=== PATIENT | female | born 1940 | race Caucasian/White ===

== ENCOUNTER → 2017-08-11 | Outpatient (CLI) | payer MEDICARE, OTHER ==
[~2017-08-11] MED LIST: ACE3 PO; ACYC800T99 PO; ASPI-839 PO; CALC600T63 PO; CHOL400T29 PO; DEN60I SUBQ; DOCU-416 PO; ENZY1CAP PO; ENZY1CAP3 PO; IBUP-56 PO; IBUP200C74 PO; LACT1CAP6 PO; LETR2.5T4 PO; LEVO25TA61 PO; LUTE20TA PO; LUTE40CA PO; MET60GMPT TOP; MULT-885 PO; OMEG500C7 PO
--- NOTE | 2017-08-11 13:01 | RADIOLOGY IMAGING REPORT ---
FACILITY: [facility] - [place] PATIENT NAME: Nevin Cade : 1940 MR: [id number] V: [id number] EXAM DATE: [id number] ORDERING PHYSICIAN: KELSIE TOUSSAINT TECHNOLOGIST: Location: [facility] - [place] Patient: Nevin Cade : 1940 Visit/Account:[id number] Date of Sevice: 08/11/2017 DEXA Scan Clinical history: Osteopenia. Comparison: DEXA scan from 05/24/2016. LUMBAR SPINE: The bone mineral density (BMD) measured from L1-L4 correlates with a Z-score -0.8 and a T-score of - 3.0 which is osteoporosis as defined by the World Health Organization. The corresponding risk of fra cture in the lumbar spine is high compared with a young adult reference population. This value has i ncreased by 2.9 % since the prior study. More than 5% change is considered significant. HIP: Bone mineral density (BMD) measured in the left femoral neck region correlates with a Z-score -0.9 an d a T-score of -3.1 which is osteoporosis as defined by the World Health Organization. The corresp onding risk of fracture in the hip is high compared with a young adult reference population. The tota l hip value has increased by 7.2 % since the prior study. More than 5% change is considered signific ant. Bone mineral density (BMD) measured in the Femoral Neck region measures 0.609 g/cm2. IMPRESSION: 1. Lumbar spine: Osteoporosis. There has been increase in the bone mineral density since the previo us exam. 2. Left femoral neck region: Osteoporosis. There has been increase in the bone mineral density of t he total hip since the previous exam. 3. Femoral Neck: Bone Mineral Density is 0.609 g/cm2 The next DEXA scan of this patient should include the following sites: L1-L4 and the left hip. FRAX? WHO Fracture Risk Assessment Tool link: <http://www.shef.ac.uk/FRAX/tool.jsp?[email or web address]> PLEASE NOTE: 1) The World Health Organization defines low BMD as follows: T-score Normal > -1 Osteopenia < -1 and > -2.5 Osteoporosis < -2.5 without fractures Established osteoporosis < -2.5 with fractures 2) In general, you may wish to consider: Diagnosis Treatment Follow-up DEXA Normal BMD Prevention 2-3 years Osteopenia Prevention/therapy 1-2 years Osteoporosis Therapy Yearly 3) Fracture risk estimated from the T-score is more accurate for vertebral fractures (often spontane ous) than for hip fractures. Report Dictated By: Froy Callaway at 08/11/2017 12:54 PM Report E-Signed By: Froy Callaway at 08/11/2017 12:56 PM WSN:[email or web address]
--- NOTE | 2017-08-12 15:46 | RADIOLOGY IMAGING REPORT ---
[place] [facility] [place] NAME[place] KHUSHBOO MICHAELS : [id number] MR: [id number] V: [id number] EXAM DATE: [id number] ORDERING PHYSICIAN: KELSIE TOUSSAINT TECHNOLOGIST: Camila Sauceda PROCEDURE:BILATERAL DIAGNOSTIC DIGITAL MAMMOGRAM WITH CAD ASSISTED INTERPRETATION & 3D TOMOSYNTHESIS COMPARISON:Prior mammograms 08/10/16, 02/13/16, 11/25/15, 05/08/15 INDICATIONS:HX RIGHT BREAST CA FINDINGS: Moderately dense fibroglandular tissue again seen throughout the breasts. Again there is an area of architectural distortion in the medial upper portion of the right breast from previous lumpectomy. There is a small collection of calcifications in the medial upper portion of the right breast more appreciated previously although these appear to have a curvilinear lobular configuration & likely represent an area of developing fat necrosis. A 6 month follow up Right mammogram is recommended for further evaluation unless clinical findings warrant more immediate attention. DIAGNOSTIC CATEGORY 3--PROBABLY BENIGN FINDING. RECOMMENDATIONS: SIX MONTH FOLLOW-UP DIAGNOSTIC MAMMOGRAM: RIGHT BREAST. IMPRESSION: BIRADS 3: Probably benign finding A 6 month follow up Right mammogram recommended as described. Dictated by: Jeni Butt M.D. on 08/11/2017 at 12:39 Transcribed by: JILLIAN on 08/11/2017 at 14:13 Approved by: Jeni Butt M.D. on 08/12/2017 at 15:45 [facility]
== END ==
LOC: MAMO 10:55
PROVIDERS: ATTEND Nurse Practitioner Family
DX: M81.8 Other osteoporosis without current pathological fracture (principal); R92.1 Mammographic calcification found on diagnostic imaging of breast
CPT/HCPCS: 77062; 77066; 77080

== ENCOUNTER 2017-09-01 12:30 | Outpatient (RCR) | payer MEDICARE, OTHER ==
[2017-06-23 10:43] VITALS: BP 87/59
[2017-08-29 10:01] LABS: PLATELET COUNT, AUTOMATED 171 K/uL (150-450)
[2017-08-29 10:02] VITALS: BP 104/66
[~2017-09-01 12:30] MED LIST changes: +DENOSUMAB 60 MG/1 ML SYR SUBQ ONE
[2017-09-01 12:39] VITALS: BP 106/62
--- NOTE | 2017-09-01 19:27 | ONCOLOGY FOLLOW UP NOTE ---
EVENT DATE: September 01, 2017 DIAGNOSES - Right breast cancer - Osteoporosis CHIEF COMPLAINT Patient is here today for followup of her right breast cancer. ONCOLOGY HISTORY The patient is a 76-year-old postmenopausal woman who presented with abnormal mammogram with followup with ultrasonogram. Her ultrasound of the right breast done on May 12, 2015 was read as negative assessment. Her right digital diagnostic mammogram with CAD done on November 25, 2015 was incomplete assessment. Ultrasound of right breast done on November 25, 2015 was incomplete, so the patient ended by having bilateral breast MRI done on December 09, 2015, which showed suspicious malignancy, but the findings were not classic for malignancy. At 12 o'clock of the right breast, there is an avoid mass measuring 4.3 x 7.4 x 9.4 mm. The patient was scheduled for MRI-guided right breast biopsy done on February 13, 2016, and the patient ended by having right breast cancer wide excision and wide axillary sentinel lymph node biopsy done by Dr. Sagastume on February 13, 2016. Pathology came back positive for 1.2 cm invasive ductal carcinoma, grade II/III with negative margins. Three sentinel lymph nodes were negative for metastasis; ER positive 89%, WY negative. HER2/ dipika negative. Ki-67 was low at 4.6%. p53 was also negative. The patient's tumor was staged as stage IA (t1c pM0 cM0). HISTORY OF PRESENT ILLNESS Patient is here today for followup of her right breast cancer on Letrozole adjuvant hormonal therapy. She is doing fine currently except for occasional hot flashes. She has nasal discharge. She has occasional shortness of breath. She is weak, tired and fatigued from working in her backyard, but other than that she is really doing very well. PAST MEDICAL HISTORY 1. Thyroid nodules, on low dose levothyroxine. 2. History of skin cancer, status post resection. 3. History of bone fractures from falling in the past. PAST SURGICAL HISTORY 1. Resection for skin cancers. 2. Right broken shoulder surgery. FAMILY HISTORY Negative for cancer or blood disease except paternal first cousin with breast cancer in her mid 50s. SOCIAL HISTORY The patient is with one child. She is retired from different jobs in the past. Denies any abuse of tobacco, alcohol or drugs. CURRENT MEDICATIONS 1. Levothyroxine 25 mcg daily. 2. Vitamin supplement. 3. Letrozole 2.5 mg daily. ALLERGIES 1. HYDROCODONE, which causes vomiting and weakness. 2. CLINDAMYCIN, which causes skin rash. REVIEW OF SYSTEMS CONSTITUTIONAL: No appetite or weight change. No fever, chills. The patient has occasional hot flashes. No recent infection. HEENT: Ears: No tinnitus or hearing problem. Nose: The patient has some nasal discharge. Throat: No sore throat or mouth ulcers. Eyes: No diplopia or visual changes. RESPIRATORY: She has occasional shortness of breath. No cough, expectoration or hemoptysis. CARDIOVASCULAR: No chest pain, orthopnea, or paroxysmal nocturnal dyspnea (PND) . No edema. No palpitations. GASTROINTESTINAL: No nausea or vomiting. No diarrhea or constipation. No change in bowel movements. No heartburn or swallowing difficulties. No abdominal pain. No jaundice. No hematemesis, melena or rectal bleeding. GENITOURINARY: No hematuria or dysuria. MUSCULOSKELETAL: No pain in the muscles, joints or bones. NEUROLOGICAL: No tingling or numbness in the hands or feet. No headaches or convulsions. HEMATOLOGIC/LYMPHATIC: No bleeding or easy bruising. She is weak, tired and fatigued. No enlarged lymph nodes. SKIN: No skin rash or lumps. PSYCHIATRIC: No anxiety or depression. PHYSICAL EXAMINATION GENERAL: Looks stable. Well-developed, well-nourished, and in no acute distress. VITAL SIGNS: Blood pressure 106/62, pulse 86 per minute, respirations 16 per minute, temperature 97.2, pulse oximetry 92% on room air. HEENT: Head: Atraumatic. No sinus tenderness to palpation. Eyes: No icterus or conjunctivitis. Mouth and throat: No oral thrush or mucositis. NECK: Supple. No cervical or supraclavicular lymphadenopathy. LUNGS: Clear to auscultation and percussion bilaterally. HEART: Regular rate and rhythm. No gallops, murmurs, clicks or rubs. ABDOMEN: Soft and lax. No tenderness. No hepatosplenomegaly. No masses. EXTREMITIES: No cyanosis, clubbing or edema. LYMPHATICS: No peripheral lymphadenopathy. NEUROLOGICAL: Conscious, alert and oriented times three. No focal motor or sensory deficits. PSYCHIATRIC: Mood and affect appear normal. SKIN: No skin rash, bruise or purpuric eruption. DIAGNOSTIC DATA CBC showed white count 3.7, hemoglobin 14.1, hematocrit 41%, platelets 171,000. Chem panel totally normal except BUN 22, blood sugar 70, AST 37. Other parameters are normal. ASSESSMENT 1. 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 Three sentinel lymph nodes were negative for metastasis. ER positive; WY negative; HER2/dipika negative. Oncotype DX testing showed recurrence score of 11, so the patient is not a candidate for adjuvant chemotherapy. Patient received adjuvant radiation therapy. Her DEXA scan showed osteoporosis and her vitamin D level was normal at 56. Patient started Letrozole 2.5 mg May 27, 2016. She is tolerating treatment very well currently except for occasional hot flashes. I am planning to continue her adjuvant Letrozole therapy for a total of five years. I will see her again in three months with CBC, chem panel, and CA 27-29. 2. Osteoporosis. Patient currently on vitamin D and calcium, and because she is on one of the aromatase inhibitors, she started treatment with Prolia 60 mg every six months. We will monitor her DEXA scan every two years. 3. Thyroid nodule, on levothyroxine. 4. History of skin cancer, status post resection in the past. PLAN 1. Letrozole 2.5 mg daily. 2. Patient to return in three months with CBC, chem panel, CA 27-29. 3. Continue Prolia 60 mg subcutaneously every six months. 4. The patient to contact us for any new concerns or complaints. MTDD
== END 2017-09-06 10:05 | disposition home or self-care (01) ==
LOC: ONC 12:30
PROVIDERS: ATTEND Internal Medicine Hematology
DX: C50.811 Malignant neoplasm of overlapping sites of right female breast (principal); Z17.0 Estrogen receptor positive status [ER+]; Z92.3 Personal history of irradiation; Z79.811 Long term (current) use of aromatase inhibitors; M81.0 Age-related osteoporosis without current pathological fracture; E04.1 Nontoxic single thyroid nodule; Z85.828 Personal history of other malignant neoplasm of skin
CPT/HCPCS: 36415; 85025; 96372; G0463; J0897; 82040; 82247; 82310; 82374; 82435; 82565; 82947; 84075; 84132; 84155; 84295; 84450; 84460; 84520; 99212

== ENCOUNTER → 2017-09-12 | Outpatient (CLI) | payer MEDICARE, OTHER ==
[~2017-09-12] MED LIST changes: -DENOSUMAB 60 MG/1 ML SYR SUBQ ONE
--- NOTE | 2017-09-12 11:35 | RADIOLOGY IMAGING REPORT ---
FACILITY: [facility] - [place] PATIENT NAME: Nevin Cade : 1940 MR: [id number] V: [id number] EXAM DATE: ORDERING PHYSICIAN: SUSY SANCHEZ TECHNOLOGIST: Location: [facility] - [place] Patient: Nevin Cade : 1940 Visit/Account:[id number] Date of Sevice: 09/12/2017 THYROID HISTORY: Follow-up goiter COMPARISON: September 01, 2016 FINDINGS: SIZE: Normal. Right lobe: 4.1 x 1.3 x 1.2 cm Left lobe: 4.7 x 1.3 x 1.2 cm Isthmus: 2 mm PARENCHYMA: Homogeneous. NODULES: Right lobe: * The mid right lobe there is a well-circumscribed ovoid hypoechoic nodule measuring 9 mm in diamete r. In the superior pole the right lobe there is a 4 mm cyst Left lobe: * The mid left lobe there is a well-circumscribed ovoid hypoechoic nodule measuring 9 mm in diameter . The mid to upper pole on the left there is a 3 mm cyst. Isthmus: * None discrete. VASCULARITY: Within normal limits. ADDITIONAL FINDINGS: None IMPRESSION: Subcentimeter thyroid nodules bilaterally REFERENCE: 2015 [employer] Management Guidelines for Adult Patients with Thyroid Nodules and D ifferentiated Thyroid Cancer: The [employer] [employer] Guidelines Task Force on Thyroid Nodul es and Differentiated Thyroid Cancer. SONOGRAPHIC PATTERNS: * Benign: Purely cystic nodules (no solid component); estimated risk of malignancy <1 percent; no bi opsy recommended. * Very Low Suspicion: Spongiform or partially cystic nodules without any of the sonographic features described in low, intermediate, or high suspicion patterns; estimated risk of malignancy <3 percent; consider FNA at > 2 cm (Observation without FNA is also a reasonable option). * Low Suspicion: Isoechoic or hyperechoic solid nodule, or partially cystic nodule with eccentric so lid areas, without microcalcification, irregular margin or ETE (extra-thyroidal extension), or taller than wide shape; estimated risk of malignancy 5-10 percent; recommend FNA at >1.5 cm. * Intermediate Suspicion: Hypoechoic solid nodule with smooth margins without microcalcifications, E TE (extra-thyroidal extension), or taller than wide shape; estimated risk of malignancy 10-20 percent ; recommend FNA at > 1 cm. * High Suspicion: Solid hypoechoic nodule or solid hypoechoic component of a partially cystic nodule with one or more of the following features: irregular margins (infiltrative, microlobulated), microc alcifications, taller than wide shape, rim calcifications with small extrusive soft tissue component, evidence of ETE (extra-thyroidal extension); estimated risk of malignancy >70-90 percent; recommend FNA at > 1 cm. NOTES: * Although a sonographically suspicious subcentimeter thyroid nodule without evidence of extrathyroi martin extension or sonographically suspicious lymph nodes may be observed with close sonographic follow -up rather than pursuing immediate FNA, patient age and preference may modify decision-making. A > 50% interval increase in nodule volume and/or development of new suspicious sonographic features are felt to be a valid reasons for potential re-aspiration of a nodule previously shown to have benig n FNA cytology. Report Dictated By: Jeni Butt MD at 09/12/2017 11:20 AM Report E-Signed By: Jeni Butt MD at 09/12/2017 11:30 AM WSN:[email or web address]
== END ==
LOC: US 02:29
PROVIDERS: ATTEND Family Medicine
DX: E04.2 Nontoxic multinodular goiter (principal)
CPT/HCPCS: 76536

== ENCOUNTER → 2018-03-07 | Outpatient (CLI) | payer MEDICARE, OTHER ==
--- NOTE | 2018-03-07 16:24 | RADIOLOGY IMAGING REPORT ---
FAC[place] [facility] [place] PATIENT NAME: KHUSHBOO MICHAELS : [id number] MR: [id number] V: [id number] EXAM DATE: ORDERING PHYSICIAN: CHRISTA PHAN TECHNOLOGIST: Camila Sauceda PROCEDURE:RIGHT DIGITAL DIAGNOSTIC MAMMOGRAM WITH CAD ASSISTED INTERPRETATION & 3D TOMOSYNTHESIS COMPARISON:Prior mammograms 08/11/17, 08/10/16, 11/25/15. INDICATIONS:SIX MONTH FOLLOW UP FINDINGS: The patient also has a prior history of Right breast cancer with lumpectomy. The breasts are heterogeneously dense which may obscure small masses. Again there is an area of architectural distortion in the medial upper portion of the Right breast from previous lumpectomy. The accrual liner dystrophic type calcifications appear more prominent although have the appearance suggestive of fat necrosis. Also again noted is skin thickening from prior radiation therapy. A 6 month follow-up bilateral mammogram is recommended at which time the patient will be due for her annual mammogram. DIAGNOSTIC CATEGORY 3--PROBABLY BENIGN FINDING. RECOMMENDATIONS: SIX MONTH FOLLOW-UP DIAGNOSTIC MAMMOGRAM: BILATERAL BREASTS. IMPRESSION: BIRADS 3: Probably benign finding. A 6 month follow-up bilateral mammogram is recommended at which time the patient will be due for her annual mammogram. Dictated by: Jeni Butt M.D. on 03/07/2018 at 15:06 Transcribed by: CAITLIN on 03/07/2018 at 15:29 Approved by: Jeni Butt M.D. on 03/07/2018 at 16:23 [facility]
== END ==
LOC: MAMO 10:19
PROVIDERS: ATTEND Internal Medicine Hematology
DX: C50.911 Malignant neoplasm of unspecified site of right female breast (principal); R92.2 Inconclusive mammogram
CPT/HCPCS: 77061; 77065

== ENCOUNTER 2018-03-13 10:00 | Outpatient (RCR) | payer MEDICARE, OTHER ==
[2017-12-19 08:30] VITALS: BP_SYST 109
[2017-12-19 08:58] LABS: PLATELET COUNT, AUTOMATED 168 K/uL (150-450)
[2017-12-22 10:18] VITALS: BP 108/67
--- NOTE | 2017-12-22 19:04 | ONCOLOGY FOLLOW UP NOTE ---
EVENT DATE: December 22, 2017 DIAGNOSES 1. Right breast cancer. 2. Osteoporosis. CHIEF COMPLAINT Patient is here today for followup of her right breast cancer. ONCOLOGY HISTORY The patient is a 76-year-old postmenopausal woman who presented with abnormal mammogram with followup with ultrasonogram. Her ultrasound of the right breast done on May 12, 2015, was read as negative assessment. Her right digital diagnostic mammogram with CAD done on November 25, 2015, was incomplete assessment. Ultrasound of right breast done on November 25, 2015, was incomplete, so the patient ended by having bilateral breast MRI done on December 09, 2015, which showed suspicious malignancy, but the findings were not classic for malignancy. At 12 o'clock of the right breast, there is an ovoid mass measuring 4.3 x 7.4 x 9.4 mm. The patient was scheduled for MRI-guided right breast biopsy done on February 13, 2016, and the patient ended by having right breast cancer wide excision and wide axillary sentinel lymph node biopsy done by Dr. Sagastume on February 13, 2016. Pathology came back positive for 1.2 cm invasive ductal carcinoma, grade 2/3 with negative margins. Three sentinel lymph nodes were negative for metastasis; ER positive 89%, ID negative. HER2/dipika negative. Ki-67 was low at 4.6%. p53 was also negative. The patient's tumor was staged as stage IA (T1c pN0 cM0). HISTORY OF PRESENT ILLNESS Patient is here today for followup of her right breast cancer. She is doing fine currently. She is complaining of some hot flashes. She has nasal discharge and cough from postnasal discharge. She is short-winded sometimes. She has occasional headache. She is weak, tired, and fatigued. PAST MEDICAL HISTORY 1. Thyroid nodules, on low-dose levothyroxine. 2. History of skin cancer, status post resection. 3. History of bone fractures from falling in the past. PAST SURGICAL HISTORY 1. Resection for skin cancers. 2. Right broken shoulder surgery. FAMILY HISTORY Negative for cancer or blood disease except paternal first cousin with breast cancer in her mid 50s. SOCIAL HISTORY The patient is with one child. She is retired from different jobs in the past. Denies any abuse of tobacco, alcohol, or drugs. CURRENT MEDICATIONS 1. Levothyroxine 25 mcg daily. 2. Vitamin supplement. 3. Letrozole 2.5 mg daily. ALLERGIES 1. HYDROCODONE, which causes vomiting and weakness. 2. CLINDAMYCIN, which causes skin rash. REVIEW OF SYSTEMS CONSTITUTIONAL: No appetite or weight change. No fever, chills. She has hot flashes. No recent infection. HEENT: Ears: No tinnitus or hearing problem. Nose: She has nasal discharge. Throat: No sore throat or mouth ulcers. Eyes: No diplopia or visual changes. RESPIRATORY: She has postnasal discharge with cough and shortness of breath. CARDIOVASCULAR: No chest pain, orthopnea, or paroxysmal nocturnal dyspnea (PND). No edema. No palpitations. GASTROINTESTINAL: No nausea or vomiting. No diarrhea or constipation. No change in bowel movements. No heartburn or swallowing difficulties. No abdominal pain. No jaundice. No hematemesis, melena or rectal bleeding. GENITOURINARY: No hematuria or dysuria. MUSCULOSKELETAL: No pain in the muscles, joints or bones. NEUROLOGICAL: No tingling or numbness in the hands or feet. She has occasional headache. HEMATOLOGIC/LYMPHATIC: No bleeding or easy bruising. She is weak, tired, and fatigued. No enlarged lymph nodes. SKIN: No skin rash or lumps. PSYCHIATRIC: No anxiety or depression. PHYSICAL EXAMINATION GENERAL: Looks stable. Well developed, well nourished, and in no acute distress. VITAL SIGNS: Blood pressure 108/67, pulse 83 per minute, respirations 16 per minute, temperature 97.1, pulse ox 96% on room air. HEENT: Head: Atraumatic. No sinus tenderness to palpation. Eyes: No icterus or conjunctivitis. Mouth and throat: No oral thrush or mucositis. NECK: Supple. No cervical or supraclavicular lymphadenopathy. LUNGS: Clear to auscultation and percussion bilaterally. HEART: Regular rate and rhythm. No gallops, murmurs, clicks, or rubs. ABDOMEN: Soft and lax. No tenderness. No hepatosplenomegaly. No masses. EXTREMITIES: No cyanosis, clubbing, or edema. LYMPHATICS: No peripheral lymphadenopathy. NEUROLOGICAL: Conscious, alert, and oriented times three. No focal motor or sensory deficits. PSYCHIATRIC: Mood and affect appear normal. SKIN: No skin rash, bruise, or purpuric eruption. DIAGNOSTIC DATA CBC showed white count 4.4, hemoglobin 15.3, hematocrit 44.8, platelets 168,000. Chem panel totally normal except BUN 21. CA27.29 is normal at 12.3. ASSESSMENT 1. 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 Three sentinel lymph nodes were negative for metastasis. ER positive, ID negative, HER2/dipika negative. Oncotype DX testing showed recurrence score of 11, so the patient is not a candidate for adjuvant chemotherapy. Patient received adjuvant radiation therapy. Her DEXA scan showed osteoporosis, and her vitamin D level was normal at 56. Patient started letrozole 2.5 mg May 27, 2016. She is tolerating treatment very well currently except for mild hot flashes. I am planning to continue letrozole for a total of five years. I will see her again in three months with CBC, chem panel, and CA27.29. Her current CA27.29 is normal at 12.3, and we will continue that with each visit. 2. Osteoporosis. Patient currently on vitamin D, calcium, and Prolia. She is due today for her Prolia 60 mg subcutaneously. 3. Thyroid nodule, on levothyroxine. 4. History of skin cancer, status post resection in the past. PLAN 1. Letrozole 2.5 mg daily. 2. Prolia 60 mg subcutaneously to be given today. 3. Patient to return in three months with CBC, chem panel, and CA27.29. 4. Patient to contact us for any new concerns or complaints. MTDD
[~2018-03-13 10:00] MED LIST changes: +DENOSUMAB 60 MG/1 ML SYR SUBQ ONE; +INFLUENZA VIRUS VAC 0.5ML SYR IM ONLY ONE
[2018-03-13 10:04] VITALS: BP 119/62
[2018-03-13 10:21] LABS: PLATELET COUNT, AUTOMATED 181 K/uL (150-450)
== END 2018-03-16 ==
LOC: SPU 10:00
PROVIDERS: ATTEND Internal Medicine Hematology
DX: C50.911 Malignant neoplasm of unspecified site of right female breast (principal); Z17.0 Estrogen receptor positive status [ER+]; Z92.3 Personal history of irradiation; M81.0 Age-related osteoporosis without current pathological fracture; Z79.811 Long term (current) use of aromatase inhibitors; E04.1 Nontoxic single thyroid nodule; Z85.820 Personal history of malignant melanoma of skin
CPT/HCPCS: 36415; 85025; 86300; 96372; G0463; J0897; 82040; 82247; 82310; 82374; 82435; 82565; 82947; 84075; 84132; 84155; 84295; 84450; 84460; 84520; 99212

== ENCOUNTER 2018-03-17 07:12 | Outpatient (RCR) | payer MEDICARE, OTHER ==
[~2018-03-17 07:12] MED LIST changes: -DENOSUMAB 60 MG/1 ML SYR SUBQ ONE; -INFLUENZA VIRUS VAC 0.5ML SYR IM ONLY ONE
[2018-03-17 10:36] VITALS: BP 103/69
--- NOTE | 2018-03-17 22:04 | EL-TAR[facility] ONCOLOGY NOTE ---
EVENT DATE: March 17, 2018 DIAGNOSES 1. Right breast cancer. 2. Osteoporosis. CHIEF COMPLAINT Patient is here today for followup of her right breast cancer. ONCOLOGY HISTORY The patient is a 77-year-old postmenopausal woman who presented with abnormal mammogram with followup with ultrasonogram. Her ultrasound of the right breast done on May 12, 2015, was read as negative assessment. Her right digital diagnostic mammogram with CAD done on November 25, 2015, was incomplete assessment. Ultrasound of right breast done on November 25, 2015, was incomplete, so the patient ended by having bilateral breast MRI done on December 09, 2015, which showed suspicious malignancy, but the findings were not classic for malignancy. At 12 o'clock of the right breast, there was an ovoid mass measuring 4.3 x 7.4 x 9.4 mm. The patient was scheduled for MRI-guided right breast biopsy done on February 13, 2016, and the patient ended by having right breast cancer-wide excision and wide axillary sentinel lymph node biopsy done by Dr. Sagastume on February 13, 2016. Pathology came back positive for 1.2 cm invasive ductal carcinoma, grade 2/3 with negative margins. Three sentinel lymph nodes were negative for metastasis. ER positive 89%, ND negative, HER2/dipika negative. Ki-67 was low at 4.6%. p53 was also negative. The patient's tumor was staged as stage IA (T1c pN0 cM0). Patient started letrozole 2.5 mg May 27, 2016. HISTORY OF PRESENT ILLNESS Patient is here today for followup of her right breast cancer. She is complaining of some hot flashes and runny nose. She has occasional shortness of breath and headache. She bruises easily. She is weak, tired, and fatigued. PAST MEDICAL HISTORY 1. Thyroid nodules, on low-dose levothyroxine. 2. History of skin cancer, status post resection. 3. History of bone fractures from falling in the past. PAST SURGICAL HISTORY 1. Resection for skin cancers. 2. Right broken shoulder surgery. FAMILY HISTORY Negative for cancer or blood disease except paternal first cousin with breast cancer in her mid 50s. SOCIAL HISTORY The patient is with one child. She is retired from different jobs in the past. Denies any abuse of tobacco, alcohol, or drugs. CURRENT MEDICATIONS 1. Levothyroxine 25 mcg daily. 2. Vitamin supplement. 3. Letrozole 2.5 mg daily. ALLERGIES 1. HYDROCODONE, which causes vomiting and weakness. 2. CLINDAMYCIN, which causes skin rash. REVIEW OF SYSTEMS CONSTITUTIONAL: Patient has some hot flashes. No appetite or weight change. No fever, chills, or sweating. No recent infection. HEENT: Ears: No tinnitus or hearing problem. Nose: She has nasal discharge. No epistaxis. Throat: No sore throat or mouth ulcers. Eyes: No diplopia or visual changes. RESPIRATORY: She has occasional shortness of breath. No cough, expectoration, or hemoptysis. CARDIOVASCULAR: No chest pain, orthopnea, or paroxysmal nocturnal dyspnea (PND). No edema. No palpitations. GASTROINTESTINAL: No nausea or vomiting. No diarrhea or constipation. No change in bowel movements. No heartburn or swallowing difficulties. No abdominal pain. No jaundice. No hematemesis, melena, or rectal bleeding. GENITOURINARY: No hematuria or dysuria. MUSCULOSKELETAL: No pain in the muscles, joints, or bones. NEUROLOGIC: No tingling or numbness in the hands or feet. She has occasional headache. No convulsions. HEMATOLOGIC/LYMPHATIC: No bleeding. She bruises easily. She is weak, tired, and fatigued. No enlarged lymph nodes. SKIN: No skin rash or lumps. PSYCHIATRIC: No anxiety or depression. PHYSICAL EXAMINATION GENERAL: Looks stable. Well developed, well nourished, and in no acute distress. VITAL SIGNS: Blood pressure 103/69, pulse 78 per minute, respirations 16 per minute, temperature 96.4, pulse ox 95% on room air. HEENT: Head: Atraumatic. No sinus tenderness to palpation. Eyes: No icterus or conjunctivitis. Mouth and Throat: No oral thrush or mucositis. NECK: Supple. No cervical or supraclavicular lymphadenopathy. LUNGS: Clear to auscultation and percussion bilaterally. HEART: Regular rate and rhythm. No gallops, murmurs, clicks, or rubs. ABDOMEN: Soft and lax. No tenderness. No hepatosplenomegaly. No masses. EXTREMITIES: No cyanosis, clubbing, or edema. LYMPHATICS: No peripheral lymphadenopathy. NEUROLOGIC: Conscious, alert, and oriented times three. No focal motor or sensory deficits. PSYCHIATRIC: Mood and affect appear normal. SKIN: No skin rash, bruise, or purpuric eruption. DIAGNOSTIC DATA CBC showed white count 4.3, hemoglobin 14.5, hematocrit 42.9, platelets 181,000. Chem panel totally normal except chloride 109, BUN 25, and blood sugar 65. CA27.29 is 13.5. Vitamin D level is 56. ASSESSMENT 1. 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 Three sentinel lymph nodes were negative for metastasis. ER positive, ND negative, HER2/dipika negative. Oncotype DX testing showed recurrence score of 11, so the patient is not a candidate for adjuvant chemotherapy. Patient received adjuvant radiation therapy. Her DEXA scan showed osteoporosis, and her vitamin D level was normal at 56. Patient started letrozole 2.5 mg May 27, 2016. Her treatment is well tolerated except for mild hot flashes. Her current CA27.29 is normal at 13.5. I am planning to continue letrozole for a total of five years. I will see her again in three months with CBC, chemistry panel, and CA27.29. 2. Osteoporosis. Currently on vitamin D, calcium, and Prolia. I will continue Prolia 60 mg subcutaneously every six months. 3. Thyroid nodule, on levothyroxine. 4. History of skin cancer, status post resection in the past. PLAN 1. Letrozole 2.5 mg daily. 2. Prolia 60 mg subcutaneously every six months. 3. Patient to return in three months with CBC, chem panel, and CA27.29. 4. Patient to contact us for any new concerns or complaints. MTDD
== END 2018-06-15 ==
LOC: SPU 07:12
PROVIDERS: ATTEND Internal Medicine Hematology
DX: C50.911 Malignant neoplasm of unspecified site of right female breast (principal); Z17.0 Estrogen receptor positive status [ER+]; Z92.3 Personal history of irradiation; M81.0 Age-related osteoporosis without current pathological fracture; Z79.811 Long term (current) use of aromatase inhibitors; E04.1 Nontoxic single thyroid nodule; Z85.820 Personal history of malignant melanoma of skin; Z78.0 Asymptomatic menopausal state
CPT/HCPCS: 99212

== ENCOUNTER 2018-06-22 10:00 | Outpatient (RCR) | payer MEDICARE, OTHER ==
[2018-06-19 10:45] VITALS: BP 115/69
[2018-06-19 11:07] LABS: PLATELET COUNT, AUTOMATED 175 K/uL (150-450)
[2018-06-22] MEDS ORDERED: CHOL10005 PO (10:15)
[2018-06-22] MEDS ORDERED: DENOSUMAB 60 MG/1 ML SYR SUBQ ONE (10:15)
[2018-06-22 10:17] VITALS: BP 99/63
[2018-06-22 10:46] VITALS: BP 99/62
--- NOTE | 2018-06-22 21:26 | EL-[facility] ONCOLOGY NOTE ---
EVENT DATE: June 22, 2018 DIAGNOSES 1. Right breast cancer. 2. Osteoporosis. CHIEF COMPLAINT Patient is here today for followup of her right breast cancer. ONCOLOGY HISTORY The patient is a 77-year-old postmenopausal woman who presented with abnormal mammogram with followup with ultrasonogram. Her ultrasound of the right breast done on May 12, 2015, was read as negative assessment. Her right digital diagnostic mammogram with CAD done on November 25, 2015, was incomplete assessment. Ultrasound of right breast done on November 25, 2015, was incomplete, so the patient ended by having bilateral breast MRI done on December 09, 2015, which showed suspicious malignancy, but the findings were not classic for malignancy. At 12 o'clock of the right breast, there was an ovoid mass measuring 4.3 x 7.4 x 9.4 mm. The patient was scheduled for MRI-guided right breast biopsy done on February 13, 2016, and the patient ended by having right breast cancer-wide excision and wide axillary sentinel lymph node biopsy done by Dr. Sagastume on February 13, 2016. Pathology came back positive for 1.2 cm invasive ductal carcinoma, grade 2/3, with negative margins. Three sentinel lymph nodes were negative for metastasis. ER positive 89%, AL negative, HER2/dipika negative. Ki-67 was low at 4.6%. p53 was also negative. The patient's tumor was staged as stage IA (T1c pN0 cM0). Patient started letrozole 2.5 mg May 27, 2016. HISTORY OF PRESENT ILLNESS Patient is here today for followup of her right breast cancer. She is complaining of some hot flashes and some runny nose. She has occasional dry cough and shortness of breath. She also has occasional palpitation. She has occasional headache and fatigue also, but generally speaking, she is really doing very well. PAST MEDICAL HISTORY 1. Thyroid nodules, on low-dose levothyroxine. 2. History of skin cancer, status post resection. 3. History of bone fractures from falling in the past. PAST SURGICAL HISTORY 1. Resection for skin cancers. 2. Right broken shoulder surgery. FAMILY HISTORY Negative for cancer or blood disease except paternal first cousin with breast cancer in her mid 50s. SOCIAL HISTORY The patient is with one child. She is retired from different jobs in the past. Denies any abuse of tobacco, alcohol, or drugs. CURRENT MEDICATIONS 1. Levothyroxine 25 mcg daily. 2. Vitamin supplement. 3. Letrozole 2.5 mg daily. ALLERGIES 1. HYDROCODONE, which causes vomiting and weakness. 2. CLINDAMYCIN, which causes skin rash. REVIEW OF SYSTEMS CONSTITUTIONAL: She has hot flashes. No appetite or weight change. No fever, chills, or sweating. No recent infection. HEENT: Ears: No tinnitus or hearing problem. Nose: She has nasal discharge. No epistaxis. Throat: No sore throat or mouth ulcers. Eyes: No diplopia or visual changes. RESPIRATORY: She has occasional cough and shortness of breath. No expectoration or hemoptysis. CARDIOVASCULAR: No chest pain, orthopnea, or paroxysmal nocturnal dyspnea (PND). No edema. She has occasional palpitation. GASTROINTESTINAL: No nausea or vomiting. No diarrhea or constipation. No change in bowel movements. No heartburn or swallowing difficulties. No abdominal pain. No jaundice. No hematemesis, melena, or rectal bleeding. GENITOURINARY: No hematuria or dysuria. MUSCULOSKELETAL: No pain in the muscles, joints, or bones. NEUROLOGIC: No tingling or numbness in the hands or feet. She has occasional headache. No convulsions. HEMATOLOGIC/LYMPHATIC: No bleeding. She has occasional weakness and fatigue. No enlarged lymph nodes. SKIN: No skin rash or lumps. PSYCHIATRIC: No anxiety or depression. PHYSICAL EXAMINATION GENERAL: Looks stable. Well developed, well nourished, and in no acute distress. VITAL SIGNS: Blood pressure 99/63, pulse 107 per minute, respirations 16 per minute, temperature 96, pulse ox 92% on room air. HEENT: Head: Atraumatic. No sinus tenderness to palpation. Eyes: No icterus or conjunctivitis. Mouth and Throat: No oral thrush or mucositis. NECK: Supple. No cervical or supraclavicular lymphadenopathy. LUNGS: Clear to auscultation and percussion bilaterally. HEART: Regular rate and rhythm. No gallops, murmurs, clicks, or rubs. ABDOMEN: Soft and lax. No tenderness. No hepatosplenomegaly. No masses. EXTREMITIES: No cyanosis, clubbing, or edema. LYMPHATICS: No peripheral lymphadenopathy. NEUROLOGIC: Conscious, alert, and oriented times three. No focal motor or sensory deficits. PSYCHIATRIC: Mood and affect appear normal. SKIN: No skin rash, bruise, or purpuric eruption. DIAGNOSTIC DATA CBC showed white count 3.8, hemoglobin 14.1, hematocrit 42.1, platelets 175,000. Chem panel totally normal except chloride 108. CA27.29 is stable at 13.5, which is also normal. ASSESSMENT 1. 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 Three sentinel lymph nodes were negative for metastasis. ER positive, AL negative, HER2/dipika negative. Oncotype DX testing showed recurrence score of 11, so the patient is not a candidate for adjuvant chemotherapy. Patient received adjuvant radiation therapy. Her DEXA scan showed osteoporosis, and her vitamin D level was normal at 56. Patient started letrozole 2.5 mg on May 27, 2016. She is tolerating treatment very well except for some hot flashes. Her current CA27.29 is normal and stable at 13.5. I am planning to continue letrozole for a total of five years. I will see her again in three months with CBC, chemistry panel, and CA27.29. 2. Osteoporosis. Patient currently on vitamin D, calcium, and Prolia. I will continue Prolia 60 mg subcutaneously every six months. 3. Thyroid nodule, on levothyroxine. 4. History of skin cancer, status post resection in the past. PLAN 1. Letrozole 2.5 mg daily. 2. Prolia 60 mg subcutaneously every six months. 3. Patient to return in three months with CBC, chem panel, and CA27.29. 4. Patient to contact us for any new concerns or complaints. MTDD
== END 2018-09-14 ==
LOC: ONC 10:00
PROVIDERS: ATTEND Internal Medicine Hematology
DX: C50.911 Malignant neoplasm of unspecified site of right female breast (principal); Z17.0 Estrogen receptor positive status [ER+]; Z92.3 Personal history of irradiation; M81.0 Age-related osteoporosis without current pathological fracture; Z79.811 Long term (current) use of aromatase inhibitors; E04.1 Nontoxic single thyroid nodule; Z85.820 Personal history of malignant melanoma of skin; Z78.0 Asymptomatic menopausal state
CPT/HCPCS: 36415; 82040; 82247; 82310; 82374; 82435; 82565; 82947; 84075; 84132; 84155; 84295; 84450; 84460; 84520; 85025; 86300; 99212; J0897

== ENCOUNTER → 2018-07-21 | Outpatient (CLI) | payer MEDICARE, OTHER ==
[~2018-07-21] MED LIST changes: +CHOL10005 PO
== END ==
LOC: US 01:17
PROVIDERS: ATTEND Internal Medicine Cardiovascular Disease
DX: I36.1 Nonrheumatic tricuspid (valve) insufficiency (principal)
CPT/HCPCS: 93306

== ENCOUNTER → 2018-09-20 | Outpatient (CLI) | payer MEDICARE, OTHER ==
--- NOTE | 2018-09-25 13:11 | RADIOLOGY IMAGING REPORT ---
FACILITY: [facility] - [place] PATIENT NAME: KHUSHBOO MICHAELS : [id number] MR: [id number] V: [id number] EXAM DATE: [id number] ORDERING PHYSICIAN: CHRISTA PHAN TECHNOLOGIST: Camila Sauceda PROCEDURE:BILATERAL DIAGNOSTIC DIGITAL MAMMOGRAM WITH CAD ASSISTED INTERPRETATION & 3D TOMOSYNTHESIS REASON FOR STUDY: 6 month follow up for personal history of breast cancer FAMILY HISTORY OF BREAST CANCER: Self BREAST PROCEDURES/TREATMENTS: Malignant lumpectomy in the Right breast followed by radiation therapy. COMPARISON STUDIES: 03/07/18, 08/11/17, 08/10/16 MAMMOGRAM VIEWS OBTAINED: Bilateral 2D & 3D full field CC & MLO projections BREAST DENSITY: The breasts are heterogeneously dense which can obscure small masses. MAMMOGRAM FINDINGS: Again noted is an area of architectural distortion & post surgical scarring in the medial upper Right breast. Parenchymal pattern has remained stable throughout the remainder of the breast when allowing for difference in mammographic technique & patient positioning. Coarse benign appearing calcification in the medial upper portion Right breast again noted. DIAGNOSTIC CATEGORY 2--BENIGN FINDING. RECOMMENDATIONS: ROUTINE MAMMOGRAM AND CLINICAL EVALUATION. IMPRESSION: BIRADS 2: Benign finding. Dictated by: Jeni Butt M.D. on 09/20/2018 at 13:58 Transcribed by: JILLIAN on 09/20/2018 at 14:16 Approved by: Jeni Butt M.D. on 09/20/2018 at 16:58 [facility]
== END ==
LOC: MAMO 01:35
PROVIDERS: ATTEND Internal Medicine Hematology
DX: C50.911 Malignant neoplasm of unspecified site of right female breast (principal)
CPT/HCPCS: 77062; 77066

== ENCOUNTER → 2018-09-20 | Outpatient (CLI) | payer MEDICARE, OTHER ==
--- NOTE | 2018-09-20 11:26 | RADIOLOGY IMAGING REPORT ---
[place] [facility] [place] Nevin Cade : 1940 MR: [id number] V: [id number] EXAM DATE: ORDERING PHYSICIAN: SUSY SANCHEZ TECHNOLOGIST: Location: [facility] - [place] Patient: Nevin Cade : 1940 Visit/Account:[id number] Date of Sevice: 09/20/2018 THYROID HISTORY: Nontoxic goiter COMPARISON: September 12, 2017 FINDINGS: SIZE: Right lobe: 4.5 x 1 x 1.5 cm Left lobe: 4.8 x 0.9 x 1.4 cm Isthmus: 1.7 mm PARENCHYMA: Homogeneous. NODULES: Right lobe: * In the superior pole there is a well-circumscribed hypoechoic nodule measuring 7.5 mm in maximum d imension which is relatively unchanged in size. Also the superior pole there is a well-circumscribed ovoid hypoechoic nodule measuring 4.4 mm this was not imaged previously. There are small cysts also identified in the right lobe Left lobe: * In the superior pole of the left lobe there is a 9 x 6 x 5 mm well-circumscribed ovoid hypoechoic nodule this has not increased in size. Small cysts also identified in the left lobe Isthmus: * None discrete. VASCULARITY: Within normal limits. ADDITIONAL FINDINGS: None. IMPRESSION: There well-circumscribed subcentimeter hypoechoic nodules in both lobes that have remained stable REFERENCE: 2015 [place] [employer] Management Guidelines for Adult Patients with Thyroid Nodules and D ifferentiated Thyroid Cancer: The [place] [employer] Guidelines Task Force on Thyroid Nodul es and Differentiated Thyroid Cancer. SONOGRAPHIC PATTERNS: * Benign: Purely cystic nodules (no solid component); estimated risk of malignancy <1 percent; no bi opsy recommended. * Very Low Suspicion: Spongiform or partially cystic nodules without any of the sonographic features described in low, intermediate, or high suspicion patterns; estimated risk of malignancy <3 percent; consider FNA at > 2 cm (Observation without FNA is also a reasonable option). * Low Suspicion: Isoechoic or hyperechoic solid nodule, or partially cystic nodule with eccentric so lid areas, without microcalcification, irregular margin or ETE (extra-thyroidal extension), or taller than wide shape; estimated risk of malignancy 5-10 percent; recommend FNA at >1.5 cm. * Intermediate Suspicion: Hypoechoic solid nodule with smooth margins without microcalcifications, E TE (extra-thyroidal extension), or taller than wide shape; estimated risk of malignancy 10-20 percent ; recommend FNA at > 1 cm. * High Suspicion: Solid hypoechoic nodule or solid hypoechoic component of a partially cystic nodule with one or more of the following features: irregular margins (infiltrative, microlobulated), microc alcifications, taller than wide shape, rim calcifications with small extrusive soft tissue component, evidence of ETE (extra-thyroidal extension); estimated risk of malignancy >70-90 percent; recommend FNA at > 1 cm. NOTES: * Although a sonographically suspicious subcentimeter thyroid nodule without evidence of extrathyroi martin extension or sonographically suspicious lymph nodes may be observed with close sonographic follow -up rather than pursuing immediate FNA, patient age and preference may modify decision-making. A > 50% interval increase in nodule volume and/or development of new suspicious sonographic features are felt to be a valid reasons for potential re-aspiration of a nodule previously shown to have benig n FNA cytology. Report Dictated By: Jeni Butt MD at 09/20/2018 11:17 AM Report E-Signed By: Jeni Butt MD at 09/20/2018 11:20 AM WSN:[email or web address]
--- NOTE | 2018-09-20 17:01 | RADIOLOGY IMAGING REPORT ---
FACILITY: [facility] PATIENT NAME: KHUSHBOO MICHAELS : [id number] MR: [id number] V: [id number] EXAM DATE: ORDERING PHYSICIAN: SUSY SANCHEZ TECHNOLOGIST: Camila Sauceda PROCEDURE:BILATERAL DIAGNOSTIC DIGITAL MAMMOGRAM WITH CAD ASSISTED INTERPRETATION & 3D TOMOSYNTHESIS REASON FOR STUDY: 6 month follow up for personal history of breast cancer FAMILY HISTORY OF BREAST CANCER: Self BREAST PROCEDURES/TREATMENTS: Malignant lumpectomy in the Right breast followed by radiation therapy. COMPARISON STUDIES: 03/07/18, 08/11/17, 08/10/16 MAMMOGRAM VIEWS OBTAINED: Bilateral 2D & 3D full field CC & MLO projections BREAST DENSITY: The breasts are heterogeneously dense which can obscure small masses. MAMMOGRAM FINDINGS: Again noted is an area of architectural distortion & post surgical scarring in the medial upper Right breast. Parenchymal pattern has remained stable throughout the remainder of the breast when allowing for difference in mammographic technique & patient positioning. Coarse benign appearing calcification in the medial upper portion Right breast again noted. DIAGNOSTIC CATEGORY 2--BENIGN FINDING. RECOMMENDATIONS: ROUTINE MAMMOGRAM AND CLINICAL EVALUATION. IMPRESSION: BIRADS 2: Benign finding. Dictated by: Jeni Butt M.D. on 09/20/2018 at 13:58 Transcribed by: JILLIAN on 09/20/2018 at 14:16 Approved by: Jeni Butt M.D. on 09/20/2018 at 16:58 [facility]
== END ==
LOC: US 01:35
PROVIDERS: ATTEND Family Medicine
DX: E04.9 Nontoxic goiter, unspecified (principal); R92.2 Inconclusive mammogram
CPT/HCPCS: 76536; 77062; 77066

== ENCOUNTER → 2018-10-31 | Outpatient (CLI) | payer MEDICARE, OTHER ==
--- NOTE | 2018-10-31 11:56 | RADIOLOGY IMAGING REPORT ---
[place] [facility] [place]IENT NAME: Nevin Cade : 1940 MR: [id number] V: [id number] EXAM DATE: ORDERING PHYSICIAN: CHRISTA PHAN TECHNOLOGIST: Location: [facility] Patient: Nevin Cade : 1940 Visit/Account:[id number] Date of Sevice: 10/31/2018 DEXA Scan Clinical history: Osteoporosis. Comparison: DEXA scan from 08/11/2017. LUMBAR SPINE: The bone mineral density (BMD) measured from L1-L4 correlates with a Z-score of -0.8 and a T-score of -3 which is osteoporosis as defined by the World Health Organization. The corresponding risk of fra cture in the lumbar spine is 8 times increased compared with a young adult reference population. Thi s value has increase by 3.4 % since the prior study. More than 5% change is considered significant. HIP: Bone mineral density (BMD) measured in the LEFT total hip region correlates with a Z-score -0.3 and a T-score of -2.5 which is osteoporosis as defined by the World Health Organization. The correspondin g risk of fracture in the hip is 6 times increased compared to a young adult reference population. Th is value has decreased by 0.9 % since the prior study. More than 5% change is considered significant . T score left femoral neck -3.2 Bone mineral density (BMD) measured in the Femoral Neck region measures 0.596 g/cm?. IMPRESSION: 1. Lumbar spine: Osteoporosis. There has been 3.4% increase in the bone mineral density since the p revious exam. 2. Left Total Hip: Osteoporosis. There has been 0.9% decrease in the bone mineral density since the previous exam. 3. Femoral Neck: Bone Mineral Density is 0.596 g/cm? The next DEXA scan of this patient should include the following sites: L1-L4 and the left hip. FRAX? WHO Fracture Risk Assessment Tool link: <http://www.shef.ac.uk/FRAX/tool.jsp?[email or web address]> PLEASE NOTE: 1) The World Health Organization defines low BMD as follows: T-score Normal > -1 Osteopenia < -1 and > -2.5 Osteoporosis < -2.5 without fractures Established osteoporosis < -2.5 with fractures 2) In general, you may wish to consider: Diagnosis Treatment Follow-up DEXA Normal BMD Prevention 2-3 years Osteopenia Prevention/therapy 1-2 years Osteoporosis Therapy Yearly 3) Fracture risk estimated from the T-score is more accurate for vertebral fractures (often spontane ous) than for hip fractures. Report Dictated By: Jeni Butt MD at 10/31/2018 11:45 AM Report E-Signed By: Jeni Butt MD at 10/31/2018 11:46 AM WSN:[email or web address]
== END ==
LOC: RAD 00:41
PROVIDERS: ATTEND Internal Medicine Hematology
DX: M81.0 Age-related osteoporosis without current pathological fracture (principal)
CPT/HCPCS: 77080